=== PATIENT | female | born 1985 | race Caucasian/White ===

== ENCOUNTER 2018-10-15 08:23 | Emergency (ER) | payer BC, OTHER ==
--- NOTE | 2018-10-15 08:42 | ED ---
GI/ HPI - HPI Summary HPI Summary: Patient is a 32-year-old female with a history of 4 spontaneous abortions presenting to the ED approximately 5 weeks suggested by LMP with light spotting yesterday and heavier vaginal bleeding this morning with left-sided abdominal cramping. She states this feels similar to her previous miscarriages. She denies any urinary symptoms or back pain. She endorses nausea, denies vomiting. Denies constipation or diarrhea. She denies soaking through a pad per hour and states the bleeding just seems "heavier" than yesterday. Patient is concerned for miscarriage. Denies hx of ovarian cysts or torsion. Pain is rated 3/10, aching. Patient does complain of non- malodorous white vaginal discharge without surrounding erythema to the vaginal whitney. She states she has a history of yeast infections. She states this feels similar. - History of Current Complaint Chief Complaint: EDOBProblems Time Seen by Provider: 10/15/18 08:29 Stated Complaint: 5 WEEKS PREG/BLEEDING Hx Obtained From: Patient Onset/Duration: Started Hours Ago Timing: Constant Severity: Moderate Current Severity: Moderate Pain Intensity: 1 Pain Characteristics: Cramping Associated Signs and Symptoms: Positive: Negative Additional Signs & Symptoms: Positive: Positive Test Aggravating Factor(s): Nothing Alleviating Factor(s): Vomiting - Allergy/Home Medications Allergies/Adverse Reactions: Allergies Allergy/AdvReac Type Severity Reaction Status Date / Time No Known Allergies Allergy Verified 10/15/18 08:27 PMH/Surg Hx/FS Hx/Imm Hx Previously Healthy: Yes - Immunization History Hx Pertussis Vaccination: No Immunizations Up to Date: Yes Infectious Disease History: No Infectious Disease History: Denies: Traveled Outside the [place] in Last 30 Days - Social History Occupation: Unemployed Lives: With Family Alcohol Use: None Hx Substance Use: No Hx Tobacco Use: No Smoking Status (MU): Never Smoked Tobacco Do You Chew or Dip Tobacco: No Have You Chewed or Dipped Tobacco in the LAST YEAR: No Review of Systems Constitutional: Negative Negative: Fever, Chills, Fatigue, Skin Diaphoresis Negative: Palpitations, Chest Pain Negative: Shortness Of Breath, Cough Positive: Abdominal Pain. Negative: Vomiting, Diarrhea, Nausea Genitourinary: Other - vaginal bleeding Negative: burning, dysuria, discharge, incontinence, pain, urgency Skin: Negative Neurological: Negative All Other Systems Reviewed And Are Negative: Yes Physical Exam Triage Information Reviewed: Yes Vital Signs On Initial Exam: Initial Vitals Temp Pulse Resp BP Pulse Ox 98.8 F 72 18 131/84 99 10/15/18 08:25 10/15/18 08:25 10/15/18 08:25 10/15/18 08:25 10/15/18 08:25 Vital Signs Reviewed: Yes Appearance: Positive: Well-Appearing, Well-Nourished Skin: Positive: Warm, Skin Color Reflects Adequate Perfusion Head/Face: Positive: Normal Head/Face Inspection Eyes: Positive: EOMI, KENDRA, Conjunctiva Clear Neck: Positive: Nontender, No Lymphadenopathy Respiratory/Lung Sounds: Positive: Clear to Auscultation Cardiovascular: Positive: RRR, Pulses are Symmetrical in both Upper and Lower Extremities Abdomen Description: Positive: Nontender, Soft Bowel Sounds: Positive: Present Musculoskeletal: Positive: Normal, Strength/ROM Intact Neurological: Positive: Speech Normal Psychiatric: Positive: Normal, Affect/Mood Appropriate AVPU Assessment: Alert Diagnostics - Vital Signs Vital Signs Temp Pulse Resp BP Pulse Ox 10/15/18 08:25 98.8 F 72 18 131/84 99 - Laboratory Result Diagrams: 10/15/18 08:44 10/15/18 08:44 Lab Statement: Any lab studies that have been ordered have been reviewed, and results considered in the medical decision making process. GIGU Course/Dx - Course Course Of Treatment: During the course of treatment, the patient's evaluated for vaginal bleeding and left-sided abdominal cramping. Denies any urinary symptoms or back pain. She believes she may be approximately 5-6 weeks based on last menstrual cycle. She has not seen her OB for this. ECG obtained and is 30.33. Due to her left-sided pain and vaginal bleeding, I wanted to rule out an ectopic versus other etiology. Ultrasound obtained which shows: No evidence of intrauterine is identified. Flow in both ovaries. No evidence of ectopic. Discussed findings with patient. I discussed I am unable to discern if she is having a threatened miscarriage and she will need to continue with serial hCGs and follow-up with her [facility] in 2 days. She understands these and voices no concerns at this time. She is okay for discharge. She declines pain medication throughout her stay. - Diagnoses Differential Diagnoses - Female: Other - Threatened , missed completed , vaginal bleeding, Provider Diagnoses: Threatened Discharge - Sign-Out/Discharge Documenting (check all that apply): Patient Departure Patient Received Moderate/Deep Sedation with Procedure: No - Discharge Plan Condition: Stable Disposition: HOME Patient Education Materials: Threatened Miscarriage (ED) Referrals: No Primary Care Phys,NOPCP [Primary Care Provider] - Additional Instructions: Please follow up with your OBGYN As discussed, there was no intrauterine seen on US today However, you are still not very far along in the I have given you information on threatened (miscarriage) You will need to obtain repeat HCG's and to have close follow-up with her [facility] If he develop any pain, vaginal bleeding where you are soaking through more than 1 pad per hour, return to the ED Do not use tampons at this time, only pads Use Tylenol 650 mg 3 times daily for any discomfort - Billing Disposition and Condition Condition: STABLE Disposition: Home
[2018-10-15 08:52] LABS: ABS Basophils 0.1 10^3/ul (0-0.2); ABS Eosinophils 0.1 10^3/ul (0-0.6); ABS Lymphocytes 1.7 10^3/ul (1.0-4.8); ABS Monocytes 0.6 10^3/ul (0-0.8); ABS Neutrophils 8.2 10^3/ul (1.5-7.7); ABS Nucleated RBC 0 10^3/ul; Eosinophil % 1.3 %; Hematocrit 45 % (35-47); Hemoglobin 15.2 g/dl (12.0-16.0); Lymphocyte % 16.3 %; Mean Corpuscular HGB Conc 34 g/dl (31-36); Mean Corpuscular Hemoglobin 30 pg (27-31); Mean Corpuscular Volume 88 fL (80-97); Mean Platelet Volume 8.8 fL (7.4-10.4); Nucleated Red Blood Cells % 0; Platelet Count 253 10^3/ul (150-450); Red Blood Count 5.08 10^6/ul (4.00-5.40); Red Cell Distribution Width 13 % (10.5-15); White Blood Count 10.7 10^3/ul (3.5-10.8)
[2018-10-15 09:04] LABS: Activated Partial Thrombo Time 33.2 seconds (26.0-36.3); INR 0.93 (0.77-1.02)
[2018-10-15 09:08] LABS: Albumin 3.8 g/dL (3.2-5.2); Albumin/Globulin Ratio 1.3 (1-3); BUN/Creatinine Ratio 14.3 (8-20); Calcium 9.3 mg/dL (8.6-10.3); EGFR African American 115.9 (>60); EGFR Non-African American 95.8 (>60); Potassium 4.3 mmol/L (3.5-5.0); Total Bilirubin 0.5 mg/dL (0.2-1.0); Total Protein 6.8 g/dL (6.4-8.9)
[2018-10-15 09:45] LABS: Urine Appearance Clear; Urine Bacteria Absent (Absent); Urine Bilirubin Negative (Negative); Urine Blood 3+ (Negative); Urine Color Yellow; Urine Glucose Negative (Negative); Urine Ketones Negative (Negative); Urine Nitrite Negative (Negative); Urine Protein Negative (Negative); Urine Red Blood Cell 3+(>10/hpf) (Absent); Urine Squamous Epithelial Cell Present (Absent); Urine Urobilinogen Negative (Negative); Urine White Blood Cell Trace(0-5/hpf) (Absent)
[2018-10-15 10:07] LABS: HCG Pregnancy 30.33 mIU/mL
[2018-10-15 10:09] VITALS: BP 114/65
== END 2018-10-15 10:09 | disposition home or self-care (01) ==
LOC: ED 08:23
DX: O20.0 Threatened abortion (principal); Z3A.01 Less than 8 weeks gestation of pregnancy; Z37.9 Outcome of delivery, unspecified
CPT/HCPCS: 36415; 76817; 80053; 81003; 81015; 84702; 85025; 85610; 85730; 87086; 99282